=== PATIENT | female | born 1990 | race Caucasian/White ===

== ENCOUNTER 2016-10-10 12:29 | Emergency (ER) | payer OTHER ==
[~2016-10-10] VITALS: Ht 167.6 cm; Wt 62.1 kg
[~2016-10-10 12:29] MED LIST: AMT50 PO; CYCL10TA6 PO; IBUP-1050 PO; TRAM-10 PO
[2016-10-10 12:40] VITALS: TEMP 36.6; Ht 167.6 cm; Wt 62.1 kg
[2016-10-10] MEDS ORDERED: SUMA25TA12 PO (12:46)
--- NOTE | 2016-10-10 13:06 | DIAGNOSTIC IMAGING REPORT ---
LEFT INDEX FINGER 3 VIEWS HISTORY: painful left 2nd finger COMPARISON: None. FINDINGS: There is no fracture or dislocation. Soft tissues are unremarkable. No radiopaque foreign bodies. IMPRESSION: No fractures. Electronically signed by: Gael Regalado M.D. 10/10/2016 1:04 PM Dictated Date/Time: 10/10/2016 1:02 PM
[2016-10-10] MEDS ORDERED: IBUPROFEN 600 MG TAB PO STA (13:28)
[2016-10-10 14:01] VITALS: BP 116/63; PULSE 75; O2SAT 100
--- NOTE | 2016-10-12 09:48 | EMERGENCY ROOM VISIT NOTE ---
ED Visit Note First contact with patient: 13:16 Chief Complaint: Left index finger pain. History of Present Illness: Ms. Mcclure is a 25-year-old white female who ambulates into the ED accompanied I male friend complaining of pain over the distal phalanx of the left index finger. Patient reports 2 days ago she accidentally closed her index finger in a door. She reports at the time of the injury she did have a small laceration through the eponychium and since the injury she has sustained a contusion over the posterior phalanx just proximal to the nail. Currently patient is complaining of a throbbing throughout the distal phalanx of the index finger. She rates her discomfort 7/10. Her pain is nonradiating. Her pain worsens with palpation and flexion and extension of the DIP joint. She has not identified any alleviating factors related to the pain. She reports she's been using ibuprofen without relief of her discomfort. Associated with her pain she reports that the distal portion of her finger is numb. Additionally patient does note the contusion on the finger and is expressing concerns about a possible blood clot because she reports multiple family members have a history of blood clots. She denies any previous significant injuries, trauma or surgeries to the finger. She has no pain throughout the hand and there is no pain over the MCP and PIP joint of the finger. She has not noted any bleeding under the nail. Additionally she does report there was a small flap of skin in the area of her superficial laceration that she cut off with fingernail clippers and she has not seen any increasing redness/swelling, red streaking or pus like drainage. Review of Systems: As noted above in history of present illness. Past Medical History: Bronchitis. Current Medications: Flexeril, ibuprofen, Aleve, Imitrex. Allergies to Medications: Patient denies. Social History: Patient is currently employed; she lives with her parents and feels safe in her home environment; she admits to tobacco use and denies alcohol use. Tetanus Immunization Status: 2009. Physical Examination: Vital Signs: Date Time Temp Pulse Resp B/P Pulse Ox O2 Delivery O2 Flow Rate FiO2 10/10/16 14:01 75 16 116/63 100 10/10/16 12:40 36.6 88 18 115/77 99 Room Air GENERAL: 25-year-old female in mild distress due to pain, nontoxic-appearing, afebrile and hemodynamically stable. NEUROLOGICAL: Awake, alert and oriented to person, place and time. Answering questions appropriately and following commands. SKIN: Warm, dry and pink. Left Index Finger: Superficial injury as noted above. There is no signs of infection. LEFT INDEX FINGER: No gross bony deformity. Contusion and superficial injury as noted above. No tenderness over the MCP, PIP and DIP joints. Moderate tenderness throughout the distal phalanx without bony deformity or crepitus. Throughout the distal finger the skin was warm and pink and capillary refill is brisk. She reports she could not feel me touching her finger because of her numbness. ED Course: Patient is assessed as noted above. Left Index Finger X-Rays: Was read by myself and the radiologist and shows no acute fractures or dislocations. Patient was given ice and 600 mg of ibuprofen by mouth for pain and swelling. Patient's superficial wound was washed with antibacterial soap and water and covered with a bacitracin dressing. The whole finger was then put into a metal finger splint. Patient was educated about tonight's findings and instructed on her treatment plan; she verbalizes understanding and agreement with this plan. Clinical Impression: Left index finger contusion and superficial laceration. Disposition: Patient discharged home in stable condition accompanied by her boyfriend; prior to departure she was reassessed and subjectively reported she was feeling the same. Plan: Comfort measures were discussed with the patient including the use of ibuprofen , ice, finger splint and rest. Wound care was reviewed with the patient's as well as signs of infection. Patient was encouraged to follow-up with family physician or return emergency department for signs of infection, uncontrolled pain or any new/concerning symptoms.
== END 2016-10-10 14:02 | disposition home or self-care (01) ==
LOC: C.EDB 12:31 → C.EDD 14:02
DX: S60.022A Contusion of left index finger without damage to nail, initial encounter (principal); F17.200 Nicotine dependence, unspecified, uncomplicated; W23.0XXA Caught, crushed, jammed, or pinched between moving objects, initial encounter; Y99.8 Other external cause status

== ENCOUNTER 2016-11-05 15:17 | Emergency (ER) | payer OTHER ==
[~2016-11-05] VITALS: Ht 167.6 cm; Wt 63.1 kg
[~2016-11-05 15:17] MED LIST changes: +SUMA25TA12 PO; -TRAM-10 PO
[2016-11-05 15:22] VITALS: TEMP 37; Ht 167.6 cm; Wt 63.1 kg
--- NOTE | 2016-11-05 16:21 | EMERGENCY ROOM VISIT NOTE ---
History First contact with patient: 15:46 Chief Complaint: VAGINAL DISCHARGE Stated Complaint: VAG. DISCOMFORT, BLEEDING, DISCHARGE ABNORMAL History of Present Illness The patient is a 26 year old female who presents to the Emergency Room with complaints of pelvic cramping and vaginal bleeding. The patient reports she had a colposcopy with biopsy [address] Roa. She states that she did have some initial bleeding and cramping, but seemed to be okay yesterday. She states that last night, she had increased bright red bleeding and passed a clot today. She reports pelvic cramping which she rates a 5/10. She has a Mirena IUD and denies chance of . She denies any abnormal vaginal discharge, urinary symptoms or fevers. Review of Systems A complete 10-point Review of Systems was discussed with the patient, with pertinent positives and negatives listed in the History of Present Illness. All remaining Review of Systems questions can be considered negative unless otherwise specified. Past Medical/Surgical History Medical Problems: (1) Acute bronchitis (2) ADHD (attention deficit hyperactivity disorder) (3) Bipolar disorder (4) Cleft palate Surgical Problems: (1) [place] teeth extracted Family History Patient reports no known family medical history. Social History Smoking Status: Current Every Day Smoker Marital Status: single Occupation Status: employed Current/Historical Medications Scheduled Amitriptyline Hcl (Elavil), 25 MG PO HS Scheduled PRN Cyclobenzaprine Hcl (Flexeril), 10 MG PO TID PRN for Muscle Spasms Ibuprofen (Advil), 200-600 MG PO Q4H PRN for Pain Sumatriptan Succinate (Imitrex), 25 MG PO PRN PRN for Headache Tramadol HCl (Tramadol HCl), 50 MG PO BID PRN for Pain Allergies Coded Allergies: [place] (Verified Allergy, Unknown, acne, 11/05/16) Physical Exam Vital Signs Date Time Temp Pulse Resp B/P Pulse Ox O2 Delivery O2 Flow Rate FiO2 11/05/16 17:01 88 18 140/88 99 11/05/16 15:22 37.0 83 18 133/93 99 Room Air Physical Exam VITALS: Vitals are noted on the nurse's note and reviewed by myself. Vital signs stable. GENERAL: This is a 18-year-old female, in no acute distress, nondiaphoretic, well-developed well-nourished. HEART: Regular rate and rhythm without murmurs gallops or rubs. LUNGS: Clear to auscultation bilaterally without wheezes, rales or rhonchi. ABDOMEN: Positive bowel sounds x 4. Soft, nontender to palpation. PELVIC: External genitalia unremarkable. No blood or discharge within the vaginal vault. There is some scabbing over the cervix at approximately 7:00 with no active bleeding. Black IUD strings are protruding from the cervical os. No evidence of cervicitis. NEURO: Patient was alert and oriented to person place and time. Medical Decision & Procedures Medical Decision Differential diagnosis includes infection, postoperative bleeding, dislodged IUD , among others. The patient was evaluated as above. A pelvic exam was performed. There is some scabbing at the presumed biopsy site. There is no active bleeding or abnormal discharge on exam. The Mirena is in place. I did speak with Dr. Grayson , who did not feel that any further assessment was needed. He felt these were normal side effects of the procedure. The patient was informed of this. She was instructed to follow-up with INSTRUMENT REPAIRER HELPER if she has continued bleeding or cramping in 2-3 days. She verbalized understanding of my assessment and treatment plan and was discharged home in good condition. Impression Primary Impression: Vaginal bleeding Departure Information Dispostion Home / Self-Care Condition GOOD Referrals Traci Arias D.O. (PCP) Canan. Moran MD Patient Instructions [facility] Additional Instructions Ibuprofen, 600 mg every 6 hours until pain resolves. Continue the tramadol as needed for pain. If you have persistent bleeding/cramping, you should call your INSTRUMENT REPAIRER HELPER to schedule a follow-up appointment. Return to the emergency department with any worsening or new/concerning symptoms.
[2016-11-05] MEDS ORDERED: ULT50 PO (16:27)
[2016-11-05 17:01] VITALS: BP 140/88; PULSE 88; O2SAT 99
== END 2016-11-05 17:03 | disposition home or self-care (01) ==
LOC: C.EDB 15:18 → C.EDC 17:03
DX: N93.9 Abnormal uterine and vaginal bleeding, unspecified (principal); F90.9 Attention-deficit hyperactivity disorder, unspecified type; F31.9 Bipolar disorder, unspecified; F17.210 Nicotine dependence, cigarettes, uncomplicated; Z79.899 Other long term (current) drug therapy

== ENCOUNTER 2016-11-11 02:19 | Emergency (ER) | payer OTHER ==
[~2016-11-11] VITALS: Ht 167.6 cm; Wt 61.7 kg
[~2016-11-11 02:19] MED LIST changes: +ULT50 PO
[2016-11-11 02:22] VITALS: TEMP 36.9; Ht 167.6 cm; Wt 61.7 kg
[2016-11-11] MEDS ORDERED: SODIUM CHLORIDE 0.9% 1000ML 1,000 ML IV ONE (02:45)
[2016-11-11] MEDS ORDERED: LORAZEPAM 2 MG/ML 1 ML VIAL IV STA (02:45)
[2016-11-11 02:54] LABS: BASO % 0.3 %; BASO ABS # 0.02 K/uL (0-0.2); COMPLETE YES; EOS % 3.8 %; HEMATOCRIT 39.9 % (37-47); IG% 0.1 %; LYMPH % 27.3 %; LYMPH ABS # 2.04 K/uL (1.2-3.4); MEAN CELL VOLUME 92.4 fL (80-100); MEAN CORPUSCULAR HEMOGLOBIN 32.4 pg (25-34); MEAN CORPUSCULAR HGB CONC 35.1 g/dl (32-36); MEAN PLATELET VOLUME 10.3 fL (7.4-10.4); MONO % 9.1 %; NEUT % 59.4 %; PLATELET COUNT 208 K/uL (130-400); RED BLOOD COUNT 4.32 M/uL (4.2-5.4); WHITE BLOOD COUNT 7.46 K/uL (4.8-10.8)
[2016-11-11 03:12] LABS: BUN/CREATININE RATIO 16.3 (10-20); CALCIUM 8.5 mg/dl (8.5-10.1); CREATININE 0.84 mg/dl (0.60-1.20); POTASSIUM 3.4 mmol/L (3.5-5.1)
[2016-11-11 03:23] LABS: ALB/GLOB RATIO 1.3 (0.9-2); THYROID STIMULATING HORMONE 1.37 uIu/ml (0.300-4.500)
[2016-11-11 03:36] VITALS: BP 116/70; PULSE 80; O2SAT 96
--- NOTE | 2016-11-11 07:21 | DIAGNOSTIC IMAGING REPORT ---
CHEST ONE VIEW PORTABLE CLINICAL HISTORY: Chest tightness dyspnea COMPARISON STUDY: 08/17/2016 FINDINGS: The bones soft tissues and hemidiaphragms are normal. The cardiomediastinal silhouette is normal. The lungs are clear. The pulmonary vasculature is normal. IMPRESSION: Negative chest. Electronically signed by: Yasmany Miranda M.D. 11/11/2016 7:19 AM Dictated Date/Time: 11/11/2016 7:19 AM
--- NOTE | 2016-11-14 23:12 | EMERGENCY ROOM VISIT NOTE ---
History First contact with patient: 02:27 Chief Complaint: CARDIAC ASSESSMENT Stated Complaint: LIGHTHEADED,SHAKY,SHORT OF BREATH,CHEST PAIN Nursing Triage Summary: Pt reports chest pain that increases when she takes a deep breath. Pain substernal without radation. Rated 6/10. History of Present Illness The patient is a 26 year old female who presents to the Emergency Room with complaints of lightheadedness, shakiness, shortness of breath, and chest pain that began about one hour ago. 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 She was able to stop the car, and get out for fresh air. The patient has only been doing this job for one or 2 weeks. She does not have fever or chills. She does smoke. No abdominal or lower leg pain. No history of DVT or PE. No cardiac history. She is not diabetic. She rates her discomfort a 6/10. Review of Systems More than 10 systems were reviewed and otherwise negative with the exception of history of present illness. Past Medical/Surgical History Medical Problems: (1) Acute bronchitis (2) ADHD (attention deficit hyperactivity disorder) (3) Bipolar disorder (4) Cleft palate Surgical Problems: (1) [place] teeth extracted Family History Patient reports no known family medical history. Social History Smoking Status: Current Every Day Smoker Marital Status: single Occupation Status: employed Current/Historical Medications Scheduled Amitriptyline Hcl (Elavil), 25 MG PO HS Scheduled PRN Cyclobenzaprine Hcl (Flexeril), 10 MG PO TID PRN for Muscle Spasms Ibuprofen (Advil), 200-600 MG PO Q4H PRN for Pain Sumatriptan Succinate (Imitrex), 25 MG PO PRN PRN for Headache Tramadol HCl (Tramadol HCl), 50 MG PO BID PRN for Pain Allergies Coded Allergies: [place] (Verified Allergy, Unknown, acne, 11/11/16) Physical Exam Vital Signs Date Time Temp Pulse Resp B/P Pulse Ox O2 Delivery O2 Flow Rate FiO2 11/11/16 03:36 80 22 116/70 96 Room Air 11/11/16 02:36 74 11/11/16 02:25 97 Room Air 11/11/16 02:22 36.9 88 20 122/82 96 Room Air Pain Rating (0-10): 6.0 Physical Exam VITALS: Vitals are noted on the nurse's note and reviewed by myself. Vital signs stable. GENERAL: Well-developed, well-nourished, anxious appearing white female, who is cooperative with the examination. HEAD: Normocephalic atraumatic. NECK: Supple without nuchal rigidity. No lymphadenopathy. No thyromegaly. Cervical spine is nontender. HEART: Regular rate and rhythm without murmurs gallops or rubs. LUNGS: Clear to auscultation bilaterally without wheezes, rales or rhonchi. No retractions or accessory muscle use. ABDOMEN: Positive normal bowel sounds x 4. Soft, nontender, without masses or organomegaly. No guarding or rebound tenderness. MUSCULOSKELETAL: No muscle atrophy, erythema, or edema noted. Full range of motion without joint tenderness in all extremities. Negative Homans sign bilateral NEURO: Patient was alert and oriented to person place and time. CN II through XII grossly intact. Deep tendon reflexes 2+ throughout. Medical Decision & Procedures ER Provider Diagnostic Interpretation: CHEST ONE VIEW PORTABLE CLINICAL HISTORY: Chest tightness dyspnea COMPARISON STUDY: 08/17/2016 FINDINGS: The bones soft tissues and hemidiaphragms are normal. The cardiomediastinal silhouette is normal. The lungs are clear. The pulmonary vasculature is normal. IMPRESSION: Negative chest. Laboratory Results 11/11/16 02:40 Red Blood Count 4.32, Mean Corpuscular Volume 92.4, Mean Corpuscular Hemoglobin 32.4, Mean Corpuscular Hemoglobin Concent 35.1, Mean Platelet Volume 10.3, Neutrophils (%) (Auto) 59.4, Lymphocytes (%) (Auto) 27.3, Monocytes (%) (Auto) 9.1, Eosinophils (%) (Auto) 3.8, Basophils (%) (Auto) 0.3, Neutrophils # (Auto) 4.43, Lymphocytes # (Auto) 2.04, Monocytes # (Auto) 0.68, Eosinophils # (Auto) 0.28, Basophils # (Auto) 0.02 11/11/16 02:40 Test 11/11/16 02:40 11/11/16 02:53 White Blood Count 7.46 K/uL (4.8-10.8) Red Blood Count 4.32 M/uL (4.2-5.4) Hemoglobin 14.0 g/dL (12.0-16.0) Hematocrit 39.9 % (37-47) Mean Corpuscular Volume 92.4 fL (80-100) Mean Corpuscular Hemoglobin 32.4 pg (25-34) Mean Corpuscular Hemoglobin Concent 35.1 g/dl (32-36) Platelet Count 208 K/uL (130-400) Mean Platelet Volume 10.3 fL (7.4-10.4) Neutrophils (%) (Auto) 59.4 % Lymphocytes (%) (Auto) 27.3 % Monocytes (%) (Auto) 9.1 % Eosinophils (%) (Auto) 3.8 % Basophils (%) (Auto) 0.3 % Neutrophils # (Auto) 4.43 K/uL (1.4-6.5) Lymphocytes # (Auto) 2.04 K/uL (1.2-3.4) Monocytes # (Auto) 0.68 K/uL (0.11-0.59) Eosinophils # (Auto) 0.28 K/uL (0-0.5) Basophils # (Auto) 0.02 K/uL (0-0.2) RDW Standard Deviation 40.8 fL (36.4-46.3) RDW Coefficient of Variation 11.9 % (11.5-14.5) Immature Granulocyte % (Auto) 0.1 % Immature Granulocyte # (Auto) 0.01 K/uL (0.00-0.02) Anion Gap 10.0 mmol/L (3-11) Est Creatinine Clear Calc Drug Dose 93.3 ml/min Estimated GFR () 109.6 Estimated GFR (Non- 94.6 BUN/Creatinine Ratio 16.3 (10-20) Calcium Level 8.5 mg/dl (8.5-10.1) Magnesium Level 2.0 mg/dl (1.8-2.4) Total Bilirubin 0.2 mg/dl (0.2-1) Aspartate Amino Transf (AST/SGOT) 5 U/L (15-37) Alanine Aminotransferase (ALT/SGPT) 10 U/L (12-78) Alkaline Phosphatase 63 U/L (45-117) Total Protein 6.8 gm/dl (6.4-8.2) Albumin 3.8 gm/dl (3.4-5.0) Globulin 3.0 gm/dl (2.5-4.0) Albumin/Globulin Ratio 1.3 (0.9-2) Lipase 184 U/L (73-393) Thyroid Stimulating Hormone (TSH) 1.370 uIu/ml (0.300-4.500) Bedside D-Dimer 373 ng/mlFEU (0-450) Bedside Troponin I 0.000 ng/ml (0-0.045) Medications Administered Medications (Trade) Dose Ordered Sig/Debbie Route Start Time Stop Time Status Last Admin Dose Admin Sodium Chloride (Nss 1000ml) 1,000 ml @ 999 mls/hr Q1H1M ONCE IV 11/11/16 02:45 11/11/16 03:45 DC 11/11/16 03:02 999 MLS/HR Lorazepam (Ativan Inj) 0.5 mg NOW STAT IV 11/11/16 02:45 11/11/16 02:46 DC 11/11/16 03:02 0.5 MG ED Course Physical exam and history were performed. Nursing notes and EMR were reviewed. Patient appears to have a vague episode of chest tightness and shortness of breath. Clinically the patient appears very anxious on presentation. EKG was performed was normal sinus rhythm at 71 bpm without ischemia or ectopy. When compared to EKG of 08/17/2016change was noted. IV access was established and labs were obtained. The patient was hydrated with normal saline. She was given 1 mg IV Ativan. A chest x-ray was performed and does not show acute process. The patient was placed on a cardiac monitor technician. The patient's blood work is as above and was reviewed. She does not have a significant elevated white blood cell count, anemia, bandemia, or gross electrolyte imbalance. Lipase and transaminases are nondiagnostic. Troponin and d-dimer 1 are both negative. The patient's TSH is within normal limits. Overall the patient had significant improvement of her symptoms over several hours in the emergency room and care. She did not have a dysrhythmic episode on the cardiac monitor technician. I discussed the patient's findings with her at length, and feel that she is safe for discharge home. The patient will need to follow with her primary care physician in the next few days for recheck of her condition. I do suspect that she had an anxiety/panic attack. The patient agrees with me, and feels this is likely what occurred. The patient was discharged home under the care of her significant other who is acting as the vacuum truck driver today. The chart was completed utilizing [employer] Speech Voice Recognition Software. Grammatical errors, random word insertions, pronoun errors, and incomplete sentences are an occasional consequence of this system due to software limitations, ambient noise, and hardware issues. Any formal questions or concerns about the content, text, or information contained within the body of this dictation should be directly addressed to the provider for clarification. . Medical Decision Differential diagnosis includes, but is not limited to: Myocardial infarction, dysrhythmia, pericarditis, pneumothorax, aortic aneurysm/dissection, DVT/PE, anxiety, GERD, PUD, electrolyte imbalance, thyroid disorder, pneumonia, bronchitis, pancreatitis, and others Impression Primary Impression: Lightheadedness Additional Impression: Shortness of breath Departure Information Dispostion Home / Self-Care Condition FAIR Forms IMPORTANT VISIT INFORMATION Patient Instructions My [facility] Additional Instructions You were seen and evaluated today on an emergency basis only. This is not a substitute for, or an effort to provide, complete comprehensive medical care. It is not possible to recognize and treat all injuries or illnesses in a single emergency department visit. For this reason it is recommended that you followup with your primary care physician this week for ongoing care and evaluation. Drink plenty of fluids and remain well hydrated. You are welcome to return to the emergency department anytime with new, worsening, or concerning symptoms. Problem Qualifiers
== END 2016-11-11 03:50 | disposition home or self-care (01) ==
LOC: C.EDB 02:20 → C.EDA 03:50
DX: R42 Dizziness and giddiness (principal); R06.02 Shortness of breath; F90.0 Attention-deficit hyperactivity disorder, predominantly inattentive type; F17.200 Nicotine dependence, unspecified, uncomplicated

== ENCOUNTER 2017-01-25 00:10 | Emergency (ER) | payer OTHER ==
[~2017-01-25] VITALS: Ht 167.6 cm; Wt 61.4 kg
[2017-01-25 00:18] VITALS: TEMP 36.8; Ht 167.6 cm; Wt 61.4 kg
[2017-01-25] MEDS ORDERED: PROMETHAZINE HCL INJ 25 MG/ML 1 ML VIAL IM STA (00:47)
[2017-01-25] MEDS ORDERED: KETOROLAC TROMETHAMINE 60 MG/2 ML VIAL IM STA (00:47)
[2017-01-25] MEDS ORDERED: PENI500T2 PO (00:50)
[2017-01-25] MEDS ORDERED: PENICILLIN HOME PACK 500MG (4 DOSES)BTL PO ONE (01:00)
[2017-01-25 01:29] VITALS: BP 134/79; PULSE 90; O2SAT 94
--- NOTE | 2017-01-25 06:11 | EMERGENCY ROOM VISIT NOTE ---
History First contact with patient: 00:37 Chief Complaint: HEADACHE Stated Complaint: MIGRAINE,TOOTH/JAW PAIN History of Present Illness The patient is a 26 year old female who presents to the Emergency Room with complaints of left lower dental pain that began bothering her 3 or 4 days ago. The patient states the pain radiates into her jaw and into her head. She states this is causing her a migraine headache. She has a history of chronic migraine headaches and has not had relief with her tramadol from home. The patient rates her discomfort a dull nonradiating 10/10. She does not have a dentist because she does not have insurance. She has not had fever or chills. No facial swelling or drainage from her teeth. She does not have difficulty with breathing. This is not the worst headache of her life and feels similar to previous headaches that she has had. Previous imaging studies have evidently been normal. Review of Systems More than 10 systems were reviewed and otherwise negative with the exception of history of present illness. Past Medical/Surgical History Medical Problems: (1) Acute bronchitis (2) ADHD (attention deficit hyperactivity disorder) (3) Bipolar disorder (4) Cleft palate Surgical Problems: (1) [place] teeth extracted Family History Patient reports no known family medical history. Social History Smoking Status: Current Every Day Smoker Marital Status: single Occupation Status: employed Current/Historical Medications Scheduled Amitriptyline Hcl (Elavil), 25 MG PO HS Penicillin V Potassium (Veetids), 1 TAB PO QID Scheduled PRN Cyclobenzaprine Hcl (Flexeril), 10 MG PO TID PRN for Muscle Spasms Ibuprofen (Advil), 200-600 MG PO Q4H PRN for Pain Sumatriptan Succinate (Imitrex), 25 MG PO PRN PRN for Headache Tramadol HCl (Tramadol HCl), 50 MG PO BID PRN for Pain Allergies Coded Allergies: [place] (Verified Allergy, Unknown, acne, 01/25/17) Physical Exam Vital Signs Date Time Temp Pulse Resp B/P Pulse Ox O2 Delivery O2 Flow Rate FiO2 01/25/17 01:29 90 18 134/79 94 01/25/17 00:18 36.8 92 16 135/88 95 Room Air Pain Rating (0-10): 10.0 Physical Exam VITALS: Vitals are noted on the nurse's note and reviewed by myself. Vital signs stable. GENERAL: Well-developed, well-nourished, white female, who is in no acute distress and resting comfortably. Patient is cooperative with the examination. HEAD: Normocephalic atraumatic. EARS: External ear normal. External auditory canals clear, tympanic membranes pearly cardenas without erythema or effusion bilaterally. EYES: Pupils equal round and reactive to light and accommodation. Conjunctivae without injection, sclerae without icterus. Extraocular movements intact. NOSE: Patent, turbinates without inflammation or discharge. MOUTH: Mucous membranes moist. Tonsils are not enlarged. Pharynx without erythema, blood, or exudate. Uvula midline. Airway patent. No César's. The patient has overall poor dentition. The left lower wisdom tooth does appear with significant decay and slight impaction. There is no gross swelling or appreciable abscess. This area is tender on percussion. No facial cellulitis NECK: Supple without nuchal rigidity. No lymphadenopathy. No thyromegaly. Cervical spine is nontender. HEART: Regular rate and rhythm without murmurs gallops or rubs. LUNGS: Clear to auscultation bilaterally without wheezes, rales or rhonchi. No retractions or accessory muscle use. NEURO: Patient was alert and oriented to person place and time. CN II through XII grossly intact. Deep tendon reflexes 2+ throughout. No focal neurological deficits SKIN: The skin was without rashes, erythema, edema, or bruising. Capillary reflex less than 2 seconds. Medical Decision & Procedures Medications Administered Medications (Trade) Dose Ordered Sig/Debbie Route Start Time Stop Time Status Last Admin Dose Admin Penicillin V Potassium (Pen-Vk 500MG Home Pack) 1 homepack UD ONCE PO 01/25/17 01:00 01/25/17 01:01 DC 01/25/17 01:25 1 HOMEPACK Ketorolac Tromethamine (Toradol Inj) 60 mg NOW STAT IM 01/25/17 00:47 01/25/17 00:50 DC 01/25/17 01:07 60 MG Promethazine HCl (Phenergan Inj) 25 mg NOW STAT IM 01/25/17 00:47 01/25/17 00:50 DC 01/25/17 01:07 25 MG ED Course Physical exam and history were performed. Nursing notes and EMR were reviewed. Patient appears to have complaints of dental pain that is causing her headache. I do not appreciate obvious abscess on examination. She does not appear with evidence of meningitis. The patient does have poor dentition overall and will be started on Pen-Vee K with her first dose being provided here in the department. Evidently she does have tramadol at home that she is to continue using. I did give her 60 mg IM Toradol and 25 mg IM Phenergan for her headache symptoms. The patient will be given a continuation course of Pen-Vee K. I will provide her information for a local dentist who may be accepting new patients. Ultimately the patient must follow with a dentist for definitive care. She was otherwise asked to follow with her PCP and advised to the ER with any new, worsening, or concerning symptoms. The chart was completed utilizing [employer] Speech Voice Recognition Software. Grammatical errors, random word insertions, pronoun errors, and incomplete sentences are an occasional consequence of this system due to software limitations, ambient noise, and hardware issues. Any formal questions or concerns about the content, text, or information contained within the body of this dictation should be directly addressed to the provider for clarification. . Medical Decision The differential diagnosis includes, but is not limited to: dental pain, abscess , ludwigs, acute intracranial bleed, meningitis, encephalitis, mass or mass effect, sinusitis, infection, tumor, headache, temporal arteritis and carbon monoxide exposure, and migraine. Impression Primary Impression: Pain, dental Additional Impression: Headache Departure Information Dispostion Home / Self-Care Condition GOOD Prescriptions Penicillin V Potassium (VEETIDS) 500 Mg Tab 1 TAB PO QID for 10 Days, #40 TAB Prov: Feliberto Pimentel PA-C 01/25/17 Forms HOME CARE DOCUMENTATION FORM, IMPORTANT VISIT INFORMATION Patient Instructions My [facility] Additional Instructions You were seen and evaluated today on an emergency basis only. This is not a substitute for, or an effort to provide, complete comprehensive medical care. It is not possible to recognize and treat all injuries or illnesses in a single emergency department visit. For this reason it is recommended that you followup with your primary care physician for ongoing care and evaluation. Take Pen-Vee K 500 mg 4 times daily for the next 10 days. Continue your medications at home. We recommend he follow with a dentist as soon as possible for ongoing care and management. Emergency department is not able to provide dental services. You may be able to see Luis Lopez DMD at [phone]. They are located at [address] [place] [address], [address], [place]. You are welcome to return to the emergency department anytime with new, worsening, or concerning symptoms. Problem Qualifiers
== END 2017-01-25 01:29 | disposition home or self-care (01) ==
LOC: C.EDB 00:11 → C.EDA 01:29
DX: K08.89 Other specified disorders of teeth and supporting structures (principal); R51 Headache; F17.200 Nicotine dependence, unspecified, uncomplicated; Z98.818 Other dental procedure status

== ENCOUNTER 2018-02-16 12:33 | Emergency (ER) | payer OTHER ==
[~2018-02-16] VITALS: Ht 167.6 cm; Wt 62.0 kg
[2018-02-16 12:40] VITALS: TEMP 36.7; Ht 167.6 cm; Wt 62.0 kg
[2018-02-16] MEDS ORDERED: KETOROLAC TROMETHAMINE 30 MG/ML VIAL IV STA (12:46)
[2018-02-16] MEDS ORDERED: ALUMINUM/MAGNESIUM SUSP 30 ML UDC PO STA (12:46)
[2018-02-16] MEDS ORDERED: BCPILLS PO (12:54)
--- NOTE | 2018-02-16 12:55 | EMERGENCY ROOM VISIT NOTE ---
History Report prepared by Ziyad: Irwin Linares Under the Supervision of: Jose ChristianO. First contact with patient: 12:42 Chief Complaint: ILLNESS Stated Complaint: CHEST PAIN, DIZZY, SHORT OF BREATH History of Present Illness The patient is a 27 year old female who presents to the Emergency Room with complaints of coming and going chest pain starting this morning which is worse with breathing and laying down. Nothing relieves the pain. The patient additionally notes that she woke up this morning with shortness of breath that is worse with exertion and dizziness. She reports that she has never had pain like this before. The patient states that her period ended yesterday, and it was an abnormally timed period. She has no active medical problems, though she had a surgery to heave her IUD removed two months ago. She denies any chance of . The patient denies any history of pneumothorax. Source of History: patient Onset: this morning Position: chest Timing: other (coming and going) Modifying Factors (Worsening): breathing, other (laying down) Modifying Factors (Relieving): other (nothing) Associated Symptoms: + SOB Note: Associated symptoms: dizziness Review of Systems See HPI for pertinent positives & negatives. A total of 10 systems reviewed and were otherwise negative. Past Medical & Surgical Medical Problems: (1) Acute bronchitis (2) ADHD (attention deficit hyperactivity disorder) (3) Bipolar disorder (4) Cleft palate Surgical Problems: (1) [place] teeth extracted Family History Patient reports no known family medical history. Social History Smoking Status: Current Every Day Smoker Marital Status: single Occupation Status: employed Current/Historical Medications Scheduled Control Pills ( Control Pills), 1 TAB PO DAILY Scheduled PRN Ibuprofen (Advil), 200-600 MG PO Q4H PRN for Pain Allergies Coded Allergies: [place] (Verified Allergy, Unknown, acne, 02/16/18) Physical Exam Vital Signs Date Time Temp Pulse Resp B/P (MAP) Pulse Ox O2 Delivery O2 Flow Rate FiO2 02/16/18 13:38 72 16 123/77 96 Room Air 02/16/18 12:40 36.7 85 18 114/74 95 Room Air Physical Exam GENERAL: Patient is awake, alert, and in no acute distress. Patient is resting comfortably and showing no signs of anxiety EYES: The conjunctivae are clear. The pupils are round and reactive. EARS, NOSE, MOUTH AND THROAT: The nose is without any evidence of any deformity. Mucous membranes are moist tongue is midline NECK: The neck is nontender and supple. RESPIRATORY: Diminished breath sounds noted in the right lung field. CARDIOVASCULAR: Regular rate and rhythm noted there no murmurs rubs or gallops normal S1 normal S2 GASTROINTESTINAL: The abdomen is soft. Bowel sounds are present in all quadrants. Abdomen is nontender MUSCULOSKELETAL/EXTREMITIES: There is no evidence of gross deformity full range of motion is noted in the hips and shoulders SKIN: There is no obvious evidence of any rash. There are no petechiae, pallor or cyanosis noted. NEUROLOGIC: Patient is awake alert and oriented x3 strength is symmetric patellar reflexes are 2+ bilaterally Medical Decision & Procedures ER Provider Diagnostic Interpretation: Radiology results as stated below per my review and radiologist interpretation: SINGLE VIEW CHEST CLINICAL HISTORY: Dyspnea. FINDINGS: An AP, portable, upright chest radiograph is compared to study dated 11/11/2016. The cardiomediastinal silhouette is unremarkable. The lungs and pleural spaces are clear. No pneumothorax is seen. The bony thorax is grossly intact. IMPRESSION: No active disease in the chest. Electronically signed by: Corky Hannon M.D. 02/16/2018 1:21 PM Dictated Date/Time: 02/16/2018 1:20 PM Laboratory Results 02/16/18 13:00 Red Blood Count 4.52, Mean Corpuscular Volume 92.7, Mean Corpuscular Hemoglobin 32.1, Mean Corpuscular Hemoglobin Concent 34.6, Mean Platelet Volume 9.9, Neutrophils (%) (Auto) 68.1, Lymphocytes (%) (Auto) 19.6, Monocytes (%) (Auto) 7.6, Eosinophils (%) (Auto) 4.2, Basophils (%) (Auto) 0.3, Neutrophils # (Auto) 4.20, Lymphocytes # (Auto) 1.21, Monocytes # (Auto) 0.47, Eosinophils # (Auto) 0.26, Basophils # (Auto) 0.02 02/16/18 13:00 Test 02/16/18 13:00 02/16/18 13:09 White Blood Count 6.17 K/uL (4.8-10.8) Red Blood Count 4.52 M/uL (4.2-5.4) Hemoglobin 14.5 g/dL (12.0-16.0) Hematocrit 41.9 % (37-47) Mean Corpuscular Volume 92.7 fL (80-100) Mean Corpuscular Hemoglobin 32.1 pg (25-34) Mean Corpuscular Hemoglobin Concent 34.6 g/dl (32-36) Platelet Count 212 K/uL (130-400) Mean Platelet Volume 9.9 fL (7.4-10.4) Neutrophils (%) (Auto) 68.1 % Lymphocytes (%) (Auto) 19.6 % Monocytes (%) (Auto) 7.6 % Eosinophils (%) (Auto) 4.2 % Basophils (%) (Auto) 0.3 % Neutrophils # (Auto) 4.20 K/uL (1.4-6.5) Lymphocytes # (Auto) 1.21 K/uL (1.2-3.4) Monocytes # (Auto) 0.47 K/uL (0.11-0.59) Eosinophils # (Auto) 0.26 K/uL (0-0.5) Basophils # (Auto) 0.02 K/uL (0-0.2) RDW Standard Deviation 41.6 fL (36.4-46.3) RDW Coefficient of Variation 12.3 % (11.5-14.5) Immature Granulocyte % (Auto) 0.2 % Immature Granulocyte # (Auto) 0.01 K/uL (0.00-0.02) Prothrombin Time 10.3 SECONDS (9.0-12.0) Prothromb Time International Ratio 1.0 (0.9-1.1) Activated Partial Thromboplast Time 26.6 SECONDS (21.0-31.0) Partial Thromboplastin Ratio 1.0 Anion Gap 5.0 mmol/L (3-11) Est Creatinine Clear Calc Drug Dose 104.9 ml/min Estimated GFR () 126.9 Estimated GFR (Non- 109.5 BUN/Creatinine Ratio 12.2 (10-20) Calcium Level 8.7 mg/dl (8.5-10.1) Total Bilirubin 0.6 mg/dl (0.2-1) Aspartate Amino Transf (AST/SGOT) 14 U/L (15-37) Alanine Aminotransferase (ALT/SGPT) 10 U/L (12-78) Alkaline Phosphatase 55 U/L (45-117) Troponin I < 0.015 ng/ml (0-0.045) Total Protein 7.4 gm/dl (6.4-8.2) Albumin 3.8 gm/dl (3.4-5.0) Globulin 3.6 gm/dl (2.5-4.0) Albumin/Globulin Ratio 1.0 (0.9-2) Human Chorionic Gonadotropin, Qual NEG (NEG) Bedside D-Dimer 272 ng/mlFEU (0-450) Laboratory results per my review. Medications Administered Medications (Trade) Dose Ordered Sig/Debbie Route Start Time Stop Time Status Last Admin Dose Admin Ketorolac Tromethamine (Toradol Inj) 30 mg NOW STAT IV 02/16/18 12:46 02/16/18 12:48 DC 02/16/18 13:37 30 MG Al Hydroxide/Mg Hydroxide (Maalox Susp) 30 ml NOW STAT PO 02/16/18 12:46 02/16/18 12:48 DC 02/16/18 13:37 30 ML ECG Per My Interpretation Indication: chest pain Rate (beats per minute): 81 Rhythm: normal sinus Findings: no ectopy, other (No acute ST segment abnormality) Comparison ECG Date: 11/11/16 Change: no significant change ED Course 1242: The patient was evaluated in room A4. A complete history and physical examination were performed. 1246: Maalox Susp 30ml PO, Toradol 30mg IV 1332: Upon reevaluation, the patient is doing well. I discussed the results and treatment plan with her. She verbalized agreement of the treatment plan. She was discharged home. Medical Decision Differential diagnosis: Etiologies such as cardiac ischemia, aortic dissection, pulmonary embolism, pneumonia, pneumothorax, musculoskeletal, infections, pericarditis, myocarditis , esophageal rupture, gastrointestinal, as well as others were entertained. Nursing notes reviewed. The patient is a 27-year-old female who presented to the emergency department for an evaluation of chest discomfort. The patient states that she has had costochondritis in the past. Her pain was not consistent with pleurisy at this time. The patient's EKG did not show any acute changes from previous and her troponin as well as her d-dimer were negative. I discussed patient's laboratory and radiographic studies with her. I also discussed the limitations of the emergency department workup for chest pain with her. She was encouraged to continue taking Motrin and Tylenol for pain and follow-up with the primary care physician for further evaluation. Otherwise I encouraged her to return to the emergency department immediately if symptoms change worsen or the need arises. Medication Reconcilliation Current Medication List: was personally reviewed by me Blood Pressure Screening Patient's blood pressure: Normal blood pressure Impression Primary Impression: Anterior chest wall pain Additional Impression: Costochondritis Scribe Attestation The scribe's documentation has been prepared under my direction and personally reviewed by me in its entirety. I confirm that the note above accurately reflects all work, treatment, procedures, and medical decision making performed by me. Departure Information Dispostion Home / Self-Care Referrals Traci Arias D.O. (PCP) Forms HOME CARE DOCUMENTATION FORM, IMPORTANT VISIT INFORMATION, WORK / SCHOOL INSTRUCTIONS Patient Instructions ED Chest Pain Costochondritis, My [facility] Additional Instructions Continue all medications as prescribed. Continue using Motrin and Tylenol as directed for pain. Call your family doctor to schedule a follow-up appointment. Problem Qualifiers
[2018-02-16 13:08] LABS: BASO % 0.3 %; BASO ABS # 0.02 K/uL (0-0.2); EOS % 4.2 %; EOS ABS # 0.26 K/uL (0-0.5); HEMATOCRIT 41.9 % (37-47); HEMOGLOBIN 14.5 g/dL (12.0-16.0); IG# 0.01 K/uL (0.00-0.02); LYMPH % 19.6 %; LYMPH ABS # 1.21 K/uL (1.2-3.4); MEAN CELL VOLUME 92.7 fL (80-100); MEAN CORPUSCULAR HEMOGLOBIN 32.1 pg (25-34); MEAN CORPUSCULAR HGB CONC 34.6 g/dl (32-36); MEAN PLATELET VOLUME 9.9 fL (7.4-10.4); MONO % 7.6 %; MONO ABS # 0.47 K/uL (0.11-0.59); NEUT % 68.1 %; PLATELET COUNT 212 K/uL (130-400); RED CELL DISTRIBUTION WIDTH CV 12.3 % (11.5-14.5); RED CELL DISTRIBUTION WIDTH SD 41.6 fL (36.4-46.3); WHITE BLOOD COUNT 6.17 K/uL (4.8-10.8)
[2018-02-16 13:16] LABS: PTT PATIENT 26.6 SECONDS (21.0-31.0)
--- NOTE | 2018-02-16 13:22 | DIAGNOSTIC IMAGING REPORT ---
SINGLE VIEW CHEST CLINICAL HISTORY: Dyspnea. FINDINGS: An AP, portable, upright chest radiograph is compared to study dated 11/11/2016. The cardiomediastinal silhouette is unremarkable. The lungs and pleural spaces are clear. No pneumothorax is seen. The bony thorax is grossly intact. IMPRESSION: No active disease in the chest. Electronically signed by: Corky Hannon M.D. 02/16/2018 1:21 PM Dictated Date/Time: 02/16/2018 1:20 PM
[2018-02-16 13:31] LABS: ALBUMIN 3.8 gm/dl (3.4-5.0); ALKALINE PHOSPHATASE 55 U/L (45-117); ALT/SGPT 10 U/L (12-78); AST/SGOT 14 U/L (15-37); BLOOD UREA NITROGEN 9 mg/dl (7-18); CALCIUM 8.7 mg/dl (8.5-10.1); CARBON DIOXIDE 28 mmol/L (21-32); CREATININE 0.74 mg/dl (0.60-1.20); GLUCOSE 80 mg/dl (70-99); POTASSIUM 3.9 mmol/L (3.5-5.1); SODIUM 138 mmol/L (136-145); TOTAL PROTEIN 7.4 gm/dl (6.4-8.2)
[2018-02-16 13:38] VITALS: BP 123/77; PULSE 72; O2SAT 96
== END 2018-02-16 14:00 | disposition home or self-care (01) ==
LOC: C.EDB 12:33 → C.EDA 14:00
DX: R07.89 Other chest pain (principal); M94.0 Chondrocostal junction syndrome [Tietze]; Z79.3 Long term (current) use of hormonal contraceptives; R42 Dizziness and giddiness

== ENCOUNTER 2018-05-16 14:24 | Emergency (ER) | payer OTHER ==
[~2018-05-16] VITALS: Ht 167.6 cm; Wt 60.5 kg
[~2018-05-16 14:24] MED LIST changes: -AMT50 PO; +BCPILLS PO; -CYCL10TA6 PO; -IBUP-1050 PO; +PRED20TA PO; -SUMA25TA12 PO; -ULT50 PO
[2018-05-16 14:30] VITALS: Ht 167.6 cm; Wt 60.5 kg
[2018-05-16] MEDS ORDERED: KETOROLAC TROMETHAMINE 30 MG/ML VIAL IV STA (14:54)
[2018-05-16] MEDS ORDERED: SODIUM CHLORIDE 0.9% 500ML 500 ML IV STA (14:54)
[2018-05-16 15:02] LABS: BASO % 0.2 %; BASO ABS # 0.02 K/uL (0-0.2); EOS ABS # 0.25 K/uL (0-0.5); HEMATOCRIT 43.9 % (37-47); HEMOGLOBIN 14.8 g/dL (12.0-16.0); IG# 0.01 K/uL (0.00-0.02); LYMPH % 10.5 %; LYMPH ABS # 0.88 K/uL (1.2-3.4); MEAN CELL VOLUME 94.4 fL (80-100); MEAN CORPUSCULAR HEMOGLOBIN 31.8 pg (25-34); MEAN CORPUSCULAR HGB CONC 33.7 g/dl (32-36); MEAN PLATELET VOLUME 10.6 fL (7.4-10.4); MONO % 7.7 %; MONO ABS # 0.65 K/uL (0.11-0.59); NEUT % 78.5 %; PLATELET COUNT 202 K/uL (130-400); RED CELL DISTRIBUTION WIDTH CV 12.6 % (11.5-14.5); RED CELL DISTRIBUTION WIDTH SD 43.3 fL (36.4-46.3); WHITE BLOOD COUNT 8.41 K/uL (4.8-10.8)
[2018-05-16 15:22] LABS: ALBUMIN 3.7 gm/dl (3.4-5.0); CALCIUM 8.5 mg/dl (8.5-10.1); CREATININE 0.78 mg/dl (0.60-1.20); POTASSIUM 3.9 mmol/L (3.5-5.1); TOTAL PROTEIN 7.1 gm/dl (6.4-8.2)
[2018-05-16] MEDS ORDERED: MoRPHine SULFATE 4 MG/ML 1 ML CARP\\VIAL IV PRN (15:45)
--- NOTE | 2018-05-16 16:50 | DIAGNOSTIC IMAGING REPORT ---
PELVIC ULTRASOUND CLINICAL HISTORY: Right lower quadrant abdominal pain. COMPARISON STUDY: No previous studies for comparison. TECHNIQUE: Transabdominal and transvaginal sonography of the pelvis was performed. FINDINGS: The uterus measures 8.3 x 5.3 x 5 cm. Endometrium measures 8 mm in thickness. The right ovary measures 3.9 x 2.8 x 2.1 cm and the left measures 4.3 x 2.1 x 1.7 cm. Color flow is identified within each ovary. A dominant follicle within the left ovary measures 1.3 cm. There is no free fluid. There is no adnexal mass. IMPRESSION: Unremarkable pelvic ultrasound. Electronically signed by: Darek Becerra M.D. 05/16/2018 4:49 PM Dictated Date/Time: 05/16/2018 4:47 PM
--- NOTE | 2018-05-16 16:57 | EMERGENCY ROOM VISIT NOTE ---
History First contact with patient: 14:45 Chief Complaint: ABDOMINAL PAIN Stated Complaint: ABD PAIN, VAGINAL BLEEDING Nursing Triage Summary: Pt c/o of abd and back pain and spotting. Had period 2 weeks ago. History of Present Illness The patient is a 27 year old female who presents to the Emergency Room with complaints of diffuse abdominal pain that is sharp and constant in nature that has been going on for the last 2-3 days. She is also had some menstrual spotting. Her last menstrual period was 2 weeks ago. She is typically fairly regular. She is not due for her menses. She denies any nausea or vomiting. Her bowel movements have been reportedly small. She denies any diarrhea. No blood in her stool. She denies any urinary symptoms. She is sexually active with one partner. Denies any vaginal discharge. No dyspareunia. She has tried ibuprofen with minimal relief of her symptoms. Review of Systems 10 system review performed and negative unless noted in HPI or below Past Medical/Surgical History Medical Problems: (1) Acute bronchitis (2) ADHD (attention deficit hyperactivity disorder) (3) Bipolar disorder (4) Cleft palate Surgical Problems: (1) [place] teeth extracted Family History Patient reports no known family medical history. Social History Smoking Status: Current Every Day Smoker Marital Status: single Occupation Status: employed Current/Historical Medications Scheduled PRN Ibuprofen (Advil), 200-600 MG PO Q4H PRN for Pain Physical Exam Vital Signs Date Time Temp Pulse Resp B/P (MAP) Pulse Ox O2 Delivery O2 Flow Rate FiO2 05/16/18 18:29 36.9 63 18 102/74 96 05/16/18 14:30 36.9 63 18 102/74 96 Room Air Physical Exam VITALS: Vitals are noted on the nurse's note and reviewed by myself. Vital signs stable. GENERAL: 27-year-old female, in no acute distress, nondiaphoretic, well- developed well-nourished. SKIN: The skin was without rashes, erythema, edema, or bruising. HEAD: Normocephalic atraumatic. EYES: Conjunctivae without injection, sclerae without icterus. Extraocular movements intact. MOUTH: Mucous membranes slightly dry NECK: Supple without nuchal rigidity. No lymphadenopathy. Cervical spine is nontender. No JVD. HEART: Regular rate and rhythm without murmurs gallops or rubs. LUNGS: Clear to auscultation bilaterally without wheezes, rales or rhonchi. No accessory muscle use. ABDOMEN: Positive bowel sounds x 4.Soft, mild tenderness to palpation in the right upper and right lower quadrant, without organomegaly. No guarding or rebound tenderness. MUSCULOSKELETAL: No muscle atrophy, erythema, or edema noted. Strength 5/5 throughout. NEURO: Patient was alert and oriented to person place and time. Normal sensation to touch. No focal neurological deficits. Medical Decision & Procedures ER Provider Diagnostic Interpretation: Transvaginal ultrasound IMPRESSION: Unremarkable pelvic ultrasound. Electronically signed by: Darek Becerra M.D. 05/16/2018 4:49 PM Dictated Date/Time: 05/16/2018 4:47 PM The status of this report is Signed. KUB IMPRESSION: 1. No evidence for a bowel obstruction. 2. Mild to moderate amount of stool within the colon. Minimal stool within the rectum. Electronically signed by: Darek Becerra M.D. 05/16/2018 5:58 PM Dictated Date/Time: 05/16/2018 5:57 PM The status of this report is Signed. Draft = Not yet reviewed or approved by Radiologist Laboratory Results 05/16/18 14:45 Red Blood Count 4.65, Mean Corpuscular Volume 94.4, Mean Corpuscular Hemoglobin 31.8, Mean Corpuscular Hemoglobin Concent 33.7, Mean Platelet Volume 10.6, Neutrophils (%) (Auto) 78.5, Lymphocytes (%) (Auto) 10.5, Monocytes (%) (Auto) 7.7, Eosinophils (%) (Auto) 3.0, Basophils (%) (Auto) 0.2, Neutrophils # (Auto) 6.60, Lymphocytes # (Auto) 0.88, Monocytes # (Auto) 0.65, Eosinophils # (Auto) 0.25, Basophils # (Auto) 0.02 05/16/18 14:45 Test 05/16/18 14:32 05/16/18 14:45 Urine Color YELLOW Urine Appearance CLEAR (CLEAR) Urine pH 8.0 (4.5-7.5) Urine Specific [place] 1.022 (1.000-1.030) Urine Protein NEG (NEG) Urine Glucose (UA) NEG (NEG) Urine Ketones NEG (NEG) Urine Occult Blood NEG (NEG) Urine Nitrite NEG (NEG) Urine Bilirubin NEG (NEG) Urine Urobilinogen NEG (NEG) Urine Leukocyte Esterase NEG (NEG) Urine Test NEG (NEG) White Blood Count 8.41 K/uL (4.8-10.8) Red Blood Count 4.65 M/uL (4.2-5.4) Hemoglobin 14.8 g/dL (12.0-16.0) Hematocrit 43.9 % (37-47) Mean Corpuscular Volume 94.4 fL (80-100) Mean Corpuscular Hemoglobin 31.8 pg (25-34) Mean Corpuscular Hemoglobin Concent 33.7 g/dl (32-36) Platelet Count 202 K/uL (130-400) Mean Platelet Volume 10.6 fL (7.4-10.4) Neutrophils (%) (Auto) 78.5 % Lymphocytes (%) (Auto) 10.5 % Monocytes (%) (Auto) 7.7 % Eosinophils (%) (Auto) 3.0 % Basophils (%) (Auto) 0.2 % Neutrophils # (Auto) 6.60 K/uL (1.4-6.5) Lymphocytes # (Auto) 0.88 K/uL (1.2-3.4) Monocytes # (Auto) 0.65 K/uL (0.11-0.59) Eosinophils # (Auto) 0.25 K/uL (0-0.5) Basophils # (Auto) 0.02 K/uL (0-0.2) RDW Standard Deviation 43.3 fL (36.4-46.3) RDW Coefficient of Variation 12.6 % (11.5-14.5) Immature Granulocyte % (Auto) 0.1 % Immature Granulocyte # (Auto) 0.01 K/uL (0.00-0.02) Anion Gap 7.0 mmol/L (3-11) Est Creatinine Clear Calc Drug Dose 99.6 ml/min Estimated GFR () 119.1 Estimated GFR (Non- 102.7 BUN/Creatinine Ratio 11.2 (10-20) Calcium Level 8.5 mg/dl (8.5-10.1) Total Bilirubin 0.4 mg/dl (0.2-1) Aspartate Amino Transf (AST/SGOT) 8 U/L (15-37) Alanine Aminotransferase (ALT/SGPT) 12 U/L (12-78) Alkaline Phosphatase 65 U/L (45-117) Total Protein 7.1 gm/dl (6.4-8.2) Albumin 3.7 gm/dl (3.4-5.0) Globulin 3.4 gm/dl (2.5-4.0) Albumin/Globulin Ratio 1.1 (0.9-2) Lipase 166 U/L (73-393) Medications Administered Medications (Trade) Dose Ordered Sig/Debbie Route Start Time Stop Time Status Last Admin Dose Admin Ketorolac Tromethamine (Toradol Inj) 30 mg NOW STAT IV 05/16/18 14:54 05/16/18 14:56 DC 05/16/18 15:01 30 MG Sodium Chloride 500 ml @ 999 mls/hr Q31M STAT IV 05/16/18 14:54 05/16/18 15:24 DC 05/16/18 15:01 999 MLS/HR Morphine Sulfate (MoRPHine SULFATE INJ) 4 mg Q1H PRN IV 05/16/18 15:45 05/16/18 19:05 DC 05/16/18 17:29 4 MG Polyethylene (Miralax Powder Packet) 17 gm ONE STAT PO 05/16/18 17:40 05/16/18 17:42 DC 05/16/18 17:40 17 GM ED Course Patient was seen and examined Vital signs including blood pressure were reviewed medications list was verified with patient Labs were obtained, and a saline lock was established The patient was ordered Toradol 30 mg IV. She was hydrated with 500 cc normal saline. The patient was still complaining of pain. She was ordered morphine 4 mg IV. Imaging was performed and reviewed The patient was reassessed. She was more comfortable. We discussed her workup. She voiced understanding, was comfortable being discharged home. The patient was given 1 dose of MiraLAX The case was also discussed with my supervising physician who is in agreement with my plan. I reviewed discharge instructions the patient. They voiced understanding and had no further questions. Medical Decision Differential diagnosis: Ovarian cyst, ectopic , appendicitis, constipation, gastritis, viral versus bacterial GI illness, ureteral stone, UTI among others were entertained This patient is a 27-year-old female that presents to the emergency department complaining of diffuse sharp constant abdominal pain for the last 2 days. She had no other symptoms such as fever, vomiting or diarrhea. In fact, she notes very small bowel movements-the last one being yesterday. On exam, she had some mild diffuse tenderness on the right side of the abdomen. She did not have any rebound tenderness. She is afebrile. Nontoxic in appearance. Her workup here reveals no leukocytosis. LFTs are within normal limits. Pelvic ultrasound was performed. No abnormalities were noted. A KUB was also performed. I believe the patient is significantly constipated, which is resulting in her pain. I do not suspect an appendicitis. I had a long conversation with the patient regarding symptoms for which to return that could be concerning. She voiced understanding. She was comfortable being discharged home. Either way, the patient will follow up with her PCP this week. She was instructed to take MiraLAX. She will return with any concerning symptoms. This chart was completed in part utilizing [employer] Speech Voice Recognition software. Attempts were made to minimize the grammatical errors, random word insertions, pronoun errors and incomplete sentences. Any formal questions or concerns about the content, text or information contained within the body of this dictation should be directly addressed to the provider for clarification. Medication Reconcilliation Current Medication List: was personally reviewed by me Blood Pressure Screening Patient's blood pressure: Normal blood pressure Impression Primary Impression: Constipation Departure Information Dispostion Home / Self-Care Condition GOOD Referrals No Doctor, Assigned (PCP) Traci Arias D.O. Patient Instructions My [facility] Additional Instructions You have been evaluated in the emergency department for abdominal pain. I believe this is likely due to constipation. Please take MiraLAX 1 dose daily until you start having full bowel movements and the pain dissipates. Please also stay well-hydrated. Metamucil can also help with constipation. Please follow-up with your primary care physician as soon as possible. Call first thing tomorrow morning for a follow-up appointment. Ideally, your abdomen should be rechecked in 1-2 days. Please do not hesitate to return to the emergency department with any new, worsening or concerning symptoms; especially, fever, increased pain in the right lower abdomen or vomiting It was a pleasure participating in your care today
[2018-05-16] MEDS ORDERED: POLYETHYLENE (MIRALAX) 17 GM PACK PO STA (17:40)
--- NOTE | 2018-05-16 18:00 | DIAGNOSTIC IMAGING REPORT ---
KUB CLINICAL HISTORY: Abdominal and back pain. Possible constipation. COMPARISON STUDY: None. FINDINGS: The bowel gas pattern is normal. There is a moderate amount of stool within the right colon and transverse colon. There is minimal stool within the left colon and rectum. No urinary calculi are identified. IMPRESSION: 1. No evidence for a bowel obstruction. 2. Mild to moderate amount of stool within the colon. Minimal stool within the rectum. Electronically signed by: Darek Becerra M.D. 05/16/2018 5:58 PM Dictated Date/Time: 05/16/2018 5:57 PM
[2018-05-16 18:29] VITALS: BP 102/74; PULSE 63; TEMP 36.9; O2SAT 96
== END 2018-05-16 18:30 | disposition home or self-care (01) ==
LOC: C.EDB 14:25 → C.EDA 18:30
DX: K59.00 Constipation, unspecified (principal); F31.9 Bipolar disorder, unspecified; F90.9 Attention-deficit hyperactivity disorder, unspecified type; F17.210 Nicotine dependence, cigarettes, uncomplicated

== ENCOUNTER 2018-05-18 20:30 | Emergency (ER) | payer OTHER ==
[~2018-05-18] VITALS: Ht 167.6 cm; Wt 62.1 kg
[2018-05-18 20:39] VITALS: TEMP 36.9; Ht 167.6 cm; Wt 62.1 kg
[2018-05-18] MEDS ORDERED: ONDANSETRON INJ 2 MG/ML 2 ML VIAL IV STA (21:07)
[2018-05-18] MEDS ORDERED: SODIUM CHLORIDE 0.9% 1000ML 1,000 ML IV STA (21:07)
[2018-05-18] MEDS ORDERED: MoRPHine SULFATE 4 MG/ML 1 ML CARP\\VIAL IV STA (21:07)
[2018-05-18] MEDS ORDERED: KETOROLAC TROMETHAMINE 30 MG/ML VIAL IV STA (21:07)
--- NOTE | 2018-05-18 21:13 | EMERGENCY ROOM VISIT NOTE ---
History Report prepared by Ziyad: Lore Weir Under the Supervision of: Dr. Armani Frank M.D. First contact with patient: 21:00 Chief Complaint: ABDOMINAL PAIN Stated Complaint: STOMACH PAINS, LOWER BACK PAIN History of Present Illness The patient is a 27 year old female who presents to the Emergency Room with complaints of constant abdominal pain that began about five days ago. The patient states that the right side of her abdomen hurts worse than the left side. She states that the pain radiates to her back and up to her ribs. The patient states that she feels nauseous anytime she eats or drinks. She states that she also feels some chest pain every once in awhile. The patient states that she was in the ED three days ago and was told she was constipated. The patient states that she was told to take MiraLAX but states that it has not been helping. She states that she has not had bowel movements for about a week. The patient denies a history of kidney stones. Source of History: patient Onset: five days ago Position: abdomen Timing: constant Associated Symptoms: + chest pain, + nausea, + back pain Review of Systems See HPI for pertinent positives and negatives. A total of ten systems were reviewed and were otherwise negative. Past Medical & Surgical Medical Problems: (1) Acute bronchitis (2) ADHD (attention deficit hyperactivity disorder) (3) Bipolar disorder (4) Cleft palate Surgical Problems: (1) [place] teeth extracted Family History Patient reports no known family medical history. Social History Smoking Status: Current Every Day Smoker Marital Status: single Occupation Status: employed Current/Historical Medications Scheduled Dicyclomine Hcl (Dicyclomine Hcl), 1 CAP PO TID Ondasetron Odt (Zofran Odt), 4 MG SL Q6H Sennosides-Docusate Sodium (Senokot S), 1 TAB PO DAILY Scheduled PRN Docusate Sodium (Ra Col-Rite), 1 CAP PO DAILY PRN for Constipation Ibuprofen (Advil), 200-600 MG PO Q4H PRN for Pain Allergies Coded Allergies: [place] (Verified Allergy, Unknown, acne, 05/16/18) Physical Exam Vital Signs Date Time Temp Pulse Resp B/P (MAP) Pulse Ox O2 Delivery O2 Flow Rate FiO2 05/18/18 22:30 72 18 109/72 100 Room Air 05/18/18 20:39 36.9 112 18 139/82 97 Room Air Physical Exam GENERAL: Awake, alert, well-appearing, in no distress HENT: Normocephalic, atraumatic. Oropharynx unremarkable. EYES: Normal conjunctiva. Sclera non-icteric. NECK: Supple. No nuchal rigidity. RESPIRATORY: Clear to auscultation. No wheezes. Normal respiratory effort. CARDIAC: Normal rate. Normal rhythm. Extremities warm and well perfused. GI: Soft, non-distended. No rebound or guarding. No masses. Right-sided abdominal pain into the right flank. RECTAL: Deferred. MUSCULOSKELETAL: Atraumatic. Chest examination reveals no tenderness. There is no CVA tenderness to palpation. LOWER EXTREMITIES: Calves are equal size bilaterally and non-tender. No edema NEURO: Normal sensorium. No sensory or motor deficits noted. No facial droop. SKIN: Warm and dry. No rash or jaundice noted. Medical Decision & Procedures ER Provider Diagnostic Interpretation: Radiology results as stated below per my review and radiologist interpretation: CT SCAN OF THE ABDOMEN AND PELVIS WITH IV CONTRAST CLINICAL HISTORY: Nausea and constipation. Right-sided abdominal pain. COMPARISON STUDY: KUB and pelvic ultrasound dated 05/16/2018. TECHNIQUE: Following the IV administration of 114 cc of Optiray 320, CT scan of the abdomen and pelvis is performed from the lung bases to the proximal femora. Images are reviewed in the axial, sagittal, and coronal planes. IV contrast was administered without complication. A dose lowering technique was utilized adhering to the principles of ALARA. The examination is degraded by streak artifact from a naval piercing. CT DOSE: 292.73 mGy.cm FINDINGS: Lung bases: The heart is normal in size and without pericardial effusion. The lung bases are clear noting dependent atelectasis. Liver: The contrast-enhanced liver is normal in size, contour, and attenuation. There is no intrahepatic biliary ductal dilatation. The hepatic veins and portal veins are patent. Gallbladder: Unremarkable. Spleen: Normal in size and attenuation. Pancreas: Unremarkable. Adrenal glands: Unremarkable. Kidneys: The contrast enhanced kidneys are normal in size and without hydronephrosis. The kidneys enhance symmetrically. A retroaortic left renal vein is incidentally noted. Abdominal vasculature: The abdominal aorta is normal in course and caliber. Bowel: There is mild colonic fecal retention. No bowel obstruction is seen. The cecum is located in the pelvis. The appendix is well-visualized and normal. Peritoneum: There is no intraperitoneal free air or abdominal ascites. Lymphadenopathy: None. Pelvic viscera: The bladder is decompressed and grossly unremarkable. The uterus is heterogeneous. Bilateral ovarian follicles are noted. There is trace free fluid in the cul-de-sac. Skeletal structures: No lytic or blastic lesions are seen. IMPRESSION: 1. There are no acute infectious or inflammatory findings in the abdomen or pelvis. 2. Trace free fluid in cul-de-sac is nonspecific and likely within physiologic limits. Electronically signed by: Corky Hannon M.D. 05/18/2018 10:44 PM Dictated Date/Time: 05/18/2018 10:38 PM Laboratory Results 05/18/18 21:30 Red Blood Count 4.28, Mean Corpuscular Volume 94.6, Mean Corpuscular Hemoglobin 32.0, Mean Corpuscular Hemoglobin Concent 33.8, Mean Platelet Volume 10.7, Neutrophils (%) (Auto) 74.6, Lymphocytes (%) (Auto) 16.7, Monocytes (%) (Auto) 5.5, Eosinophils (%) (Auto) 2.7, Basophils (%) (Auto) 0.3, Neutrophils # (Auto) 8.03, Lymphocytes # (Auto) 1.80, Monocytes # (Auto) 0.59, Eosinophils # (Auto) 0.29, Basophils # (Auto) 0.03 05/18/18 21:30 Test 05/18/18 21:10 05/18/18 21:30 Urine Color YELLOW Urine Appearance CLEAR (CLEAR) Urine pH 5.0 (4.5-7.5) Urine Specific [place] 1.025 (1.000-1.030) Urine Protein NEG (NEG) Urine Glucose (UA) 1+ (NEG) Urine Ketones NEG (NEG) Urine Occult Blood NEG (NEG) Urine Nitrite NEG (NEG) Urine Bilirubin NEG (NEG) Urine Urobilinogen NEG (NEG) Urine Leukocyte Esterase NEG (NEG) White Blood Count 10.76 K/uL (4.8-10.8) Red Blood Count 4.28 M/uL (4.2-5.4) Hemoglobin 13.7 g/dL (12.0-16.0) Hematocrit 40.5 % (37-47) Mean Corpuscular Volume 94.6 fL (80-100) Mean Corpuscular Hemoglobin 32.0 pg (25-34) Mean Corpuscular Hemoglobin Concent 33.8 g/dl (32-36) Platelet Count 200 K/uL (130-400) Mean Platelet Volume 10.7 fL (7.4-10.4) Neutrophils (%) (Auto) 74.6 % Lymphocytes (%) (Auto) 16.7 % Monocytes (%) (Auto) 5.5 % Eosinophils (%) (Auto) 2.7 % Basophils (%) (Auto) 0.3 % Neutrophils # (Auto) 8.03 K/uL (1.4-6.5) Lymphocytes # (Auto) 1.80 K/uL (1.2-3.4) Monocytes # (Auto) 0.59 K/uL (0.11-0.59) Eosinophils # (Auto) 0.29 K/uL (0-0.5) Basophils # (Auto) 0.03 K/uL (0-0.2) RDW Standard Deviation 44.3 fL (36.4-46.3) RDW Coefficient of Variation 12.8 % (11.5-14.5) Immature Granulocyte % (Auto) 0.2 % Immature Granulocyte # (Auto) 0.02 K/uL (0.00-0.02) Anion Gap 9.0 mmol/L (3-11) Est Creatinine Clear Calc Drug Dose 82.6 ml/min Estimated GFR () 95.0 Estimated GFR (Non- 82.0 BUN/Creatinine Ratio 15.0 (10-20) Calcium Level 8.5 mg/dl (8.5-10.1) Total Bilirubin 0.3 mg/dl (0.2-1) Direct Bilirubin < 0.1 mg/dl (0-0.2) Aspartate Amino Transf (AST/SGOT) 8 U/L (15-37) Alanine Aminotransferase (ALT/SGPT) 8 U/L (12-78) Alkaline Phosphatase 64 U/L (45-117) Total Protein 6.7 gm/dl (6.4-8.2) Albumin 3.4 gm/dl (3.4-5.0) Lipase 206 U/L (73-393) Human Chorionic Gonadotropin, Qual NEG (NEG) Laboratory results reviewed by me Medications Administered Medications (Trade) Dose Ordered Sig/Debbie Route Start Time Stop Time Status Last Admin Dose Admin Sodium Chloride 1,000 ml @ 999 mls/hr Q1H1M STAT IV 05/18/18 21:07 05/18/18 22:07 DC 05/18/18 21:35 999 MLS/HR Ondansetron HCl (Zofran Inj) 4 mg NOW STAT IV 05/18/18 21:07 05/18/18 21:09 DC 05/18/18 21:35 4 MG Ketorolac Tromethamine (Toradol Inj) 15 mg NOW STAT IV 05/18/18 21:07 05/18/18 21:09 DC 05/18/18 21:36 15 MG Morphine Sulfate (MoRPHine SULFATE INJ) 4 mg NOW STAT IV 05/18/18 21:07 05/18/18 21:10 DC 05/18/18 21:35 4 MG Miscellaneous (Soap Suds Enema) 1 ea ONE STAT SC 05/18/18 22:54 05/18/18 22:56 DC 05/18/18 23:15 1 EA Dicyclomine HCl (Bentyl Cap) 10 mg NOW ONCE PO 05/18/18 23:00 05/18/18 23:01 DC 05/18/18 23:37 10 MG Senna (Senokot Tab) 8.6 mg ONE STAT PO 05/18/18 22:54 05/18/18 22:56 DC 05/18/18 23:39 8.6 MG ED Course 2103: The patient was evaluated in room C4. A complete history and physical exam was performed. 2340: I reevaluated the patient. Discussed results and discharge instructions: She verbalized understanding and agreement. The patient is ready for discharge. Medical Decision Differential diagnosis: Etiologies such as appendicitis, diverticulitis, PUD, biliary pathology, UTI, pancreatitis, obstruction, mesenteric ischemia, aortic pathology, infections, inflammatory bowel disease, renal colic, as well as others were entertained. Patient presents with multiple days of right-sided pain into the right lower back. Seen her several days ago with ultrasound and KUB. 8 prior to coming in. Start on MiraLAX but no bowel movement for almost a week she says. Nausea but no vomiting. Some right-sided abdominal and flank tenderness. CT the abdomen pelvis to evaluate for possible appendicitis, obstruction, or kidney stone was completed. Negative . Basic labs were completed as well. Doubt hepatitis or pancreatitis; laboratory studies unremarkable. Negative . No MARII. CT of the abdomen pelvis does not show any acute intra- abdominal pathology. Doubt ovarian torsion/PID/TOA. No evidence of acute UTI and again doubt nephrolithiasis. No evidence of bowel obstruction. She has not had a bowel movement this could be related to constipation; more right sided. Discussed with her and will trial enema here. Some effect with trace blood at end. Do not believe this represents perforation. Started on a more aggressive bowel regimen. Prescribed Bentyl and Zofran in addition to bowel regimen. Recommend outpatient follow-up. Discussed return criteria. Medication Reconcilliation Current Medication List: was personally reviewed by me Blood Pressure Screening Patient's blood pressure: Elevated blood pressure Blood pressure disposition: Elevated BP felt to be situational Impression Primary Impression: Abdominal pain Additional Impression: Constipation Scribe Attestation The scribe's documentation has been prepared under my direction and personally reviewed by me in its entirety. I confirm that the note above accurately reflects all work, treatment, procedures, and medical decision making performed by me. Departure Information Dispostion Home / Self-Care Prescriptions Ondasetron Odt (ZOFRAN ODT) 4 Mg Tab 4 MG SL Q6H for Nausea, #10 TAB Prov: Armani Frank M.D. 05/19/18 Sennosides-Docusate Sodium (SENOKOT S) 1 Tab Tab 1 TAB PO DAILY for 7 Days, #7 TAB Prov: Armani Frank M.D. 05/18/18 Dicyclomine Hcl (DICYCLOMINE HCL) 10 Mg Cap 1 CAP PO TID for 14 Days, #42 CAP 0 Refills Prov: Armani Frank M.D. 05/18/18 Docusate Sodium (Ra Col-Rite) 100 Mg Cap 1 CAP PO DAILY Y for Constipation for 7 Days, #7 CAP 0 Refills Prov: Armani Frank M.D. 05/18/18 Referrals No Doctor, Assigned (PCP) Forms HOME CARE DOCUMENTATION FORM, IMPORTANT VISIT INFORMATION Patient Instructions My [facility] Accept[facility] Additional Instructions Maintain hydration. Utilize the medication to help with nausea and constipation symptoms. Please follow-up with your regular doctor in the next 3 days; he may be discussed with them follow-up with gastroenterology if not improving. Again you may return here for concerns or new symptoms at any time for reevaluation. Problem Qualifiers Primary Impression: Abdominal pain Abdominal location: right lower quadrant Qualified Codes: R10.31 - Right lower quadrant pain Additional Impression: Constipation Constipation type: unspecified constipation type Qualified Codes: K59.00 - Constipation, unspecified
[2018-05-18] MEDS ORDERED: OPTIRAY 320 IV PRN (21:15)
[2018-05-18 21:53] LABS: BASO % 0.3 %; BASO ABS # 0.03 K/uL (0-0.2); EOS % 2.7 %; EOS ABS # 0.29 K/uL (0-0.5); HEMATOCRIT 40.5 % (37-47); HEMOGLOBIN 13.7 g/dL (12.0-16.0); IG# 0.02 K/uL (0.00-0.02); LYMPH % 16.7 %; MEAN CELL VOLUME 94.6 fL (80-100); MEAN CORPUSCULAR HGB CONC 33.8 g/dl (32-36); MEAN PLATELET VOLUME 10.7 fL (7.4-10.4); MONO % 5.5 %; MONO ABS # 0.59 K/uL (0.11-0.59); NEUT % 74.6 %; NEUT ABS # 8.03 K/uL (1.4-6.5); PLATELET COUNT 200 K/uL (130-400); RED CELL DISTRIBUTION WIDTH CV 12.8 % (11.5-14.5); RED CELL DISTRIBUTION WIDTH SD 44.3 fL (36.4-46.3); WHITE BLOOD COUNT 10.76 K/uL (4.8-10.8)
[2018-05-18 22:17] LABS: ALBUMIN 3.4 gm/dl (3.4-5.0); ALKALINE PHOSPHATASE 64 U/L (45-117); ALT/SGPT 8 U/L (12-78); AST/SGOT 8 U/L (15-37); BLOOD UREA NITROGEN 14 mg/dl (7-18); CALCIUM 8.5 mg/dl (8.5-10.1); CARBON DIOXIDE 26 mmol/L (21-32); CREATININE 0.94 mg/dl (0.60-1.20); GLUCOSE 99 mg/dl (70-99); LIPASE 206 U/L (73-393); POTASSIUM 3.5 mmol/L (3.5-5.1); SODIUM 142 mmol/L (136-145); TOTAL PROTEIN 6.7 gm/dl (6.4-8.2)
--- NOTE | 2018-05-18 22:45 | DIAGNOSTIC IMAGING REPORT ---
CT SCAN OF THE ABDOMEN AND PELVIS WITH IV CONTRAST CLINICAL HISTORY: Nausea and constipation. Right-sided abdominal pain. COMPARISON STUDY: KUB and pelvic ultrasound dated 05/16/2018. TECHNIQUE: Following the IV administration of 114 cc of Optiray 320, CT scan of the abdomen and pelvis is performed from the lung bases to the proximal femora. Images are reviewed in the axial, sagittal, and coronal planes. IV contrast was administered without complication. A dose lowering technique was utilized adhering to the principles of ALARA. The examination is degraded by streak artifact from a naval piercing. CT DOSE: 292.73 mGy.cm FINDINGS: Lung bases: The heart is normal in size and without pericardial effusion. The lung bases are clear noting dependent atelectasis. Liver: The contrast-enhanced liver is normal in size, contour, and attenuation. There is no intrahepatic biliary ductal dilatation. The hepatic veins and portal veins are patent. Gallbladder: Unremarkable. Spleen: Normal in size and attenuation. Pancreas: Unremarkable. Adrenal glands: Unremarkable. Kidneys: The contrast enhanced kidneys are normal in size and without hydronephrosis. The kidneys enhance symmetrically. A retroaortic left renal vein is incidentally noted. Abdominal vasculature: The abdominal aorta is normal in course and caliber. Bowel: There is mild colonic fecal retention. No bowel obstruction is seen. The cecum is located in the pelvis. The appendix is well-visualized and normal. Peritoneum: There is no intraperitoneal free air or abdominal ascites. Lymphadenopathy: None. Pelvic viscera: The bladder is decompressed and grossly unremarkable. The uterus is heterogeneous. Bilateral ovarian follicles are noted. There is trace free fluid in the cul-de-sac. Skeletal structures: No lytic or blastic lesions are seen. IMPRESSION: 1. There are no acute infectious or inflammatory findings in the abdomen or pelvis. 2. Trace free fluid in cul-de-sac is nonspecific and likely within physiologic limits. Electronically signed by: Corky Hannon M.D. 05/18/2018 10:44 PM Dictated Date/Time: 05/18/2018 10:38 PM
[2018-05-18] MEDS ORDERED: SENNA 8.6 MG TAB PO STA (22:54)
[2018-05-18] MEDS ORDERED: SOAP SUDS ENEMA PR STA (22:54)
[2018-05-18] MEDS ORDERED: DICYCLOMINE HCL 10 MG CAP PO ONE (23:00)
[2018-05-18] MEDS ORDERED: IBUP-1050 PO (23:08)
[2018-05-18] MEDS ORDERED: DICY10CA12 PO (23:39)
[2018-05-18] MEDS ORDERED: [UNRECOGNIZED DRUG - CODE] PO (23:39)
[2018-05-18] MEDS ORDERED: SENN-65 PO (23:46)
[2018-05-19] MEDS ORDERED: ONDA4TAB10 SL (00:15)
[2018-05-19 00:25] VITALS: BP 120/68; PULSE 78; O2SAT 98
== END 2018-05-19 00:25 | disposition home or self-care (01) ==
LOC: C.EDB 20:31 → C.EDC 05-19 00:25
DX: K59.00 Constipation, unspecified (principal); F90.9 Attention-deficit hyperactivity disorder, unspecified type; F31.9 Bipolar disorder, unspecified; F17.210 Nicotine dependence, cigarettes, uncomplicated; Z91.018 Allergy to other foods; Z88.8 Allergy status to other drugs, medicaments and biological substances